=== PATIENT | female | born 1995 | race Two or more races ===

== ENCOUNTER 2019-08-13 21:02 | Inpatient (IN) | payer OTHER ==
[~2019-08-13] VITALS: Ht 160 cm; Wt 52.9 kg
[2019-08-13] MEDS ORDERED: ONDANSETRON HCL 4 MG/2 ML VIAL IV ONE (22:00)
[2019-08-13] MEDS ORDERED: MORPHINE SULFATE 4 MG/ML SYR/VIAL IV ONE (22:00)
[2019-08-13] MEDS ORDERED: SODIUM CHLORIDE 0.9% 1,000 ML IV ONE (22:00)
[2019-08-13 22:08] LABS: Basophils # (auto) 0 10 ^3/uL (0-0.2); Basophils % (auto) 0.1 % (0.0-2.0); Eosinophils # (auto) 0.1 10 ^3/uL (0-0.8); Eosinophils % (auto) 0.9 % (0.0-7.0); Hematocrit 38.6 % (36.0-46.0); Hemoglobin 13.1 g/dL (12.2-16.2); Lymphocytes # (auto) 2.1 10 ^3/uL (0.4-5.4); Lymphocytes % (auto) 25.6 % (10.0-50.0); Mean Corpuscular Hemoglobin 30.2 pg (28.0-32.0); Mean Corpuscular Hgb Conc. 33.8 g/dL (32.0-36.0); Mean Corpuscular Volume 89.4 fL (80.0-100.0); Monocytes # (auto) 0.7 10 ^3/uL (0-1.3); Monocytes % (auto) 8.8 % (0.0-12.0); Neutrophils # (auto) 5.3 10 ^3/uL (1.6-8.6); Neutrophils % (auto) 64.6 % (37.0-80.0); Platelet Count (auto) 248 10^3/uL (140-450); Red Blood Cells 4.32 10^6/uL (4.0-5.20); Red Cell Distribution Width 13.1 % (11.8-14.3); White Blood Cell 8.2 10^3/uL (4.4-10.8)
[2019-08-13 22:18] LABS: Urine Bacteria NONE SEEN /hpf (None Seen); Urine Blood Negative /uL (Negative); Urine Specific Gravity 1.009 (1.001-1.035); Urine WBC 1 /hpf (0 - 5)
[2019-08-13 22:26] LABS: Albumin 3.6 g/dL (3.4-5.0); BUN/Creatinine Ratio 15.2; Calcium 9.1 mg/dL (8.5-10.1); Potassium 3.8 mmol/L (3.5-5.1)
[2019-08-13 22:28] LABS: INR 1.02 (0.9-1.15); Partial Thromboplastin Time 25.4 sec (23.64-32.05)
[2019-08-13 22:29] LABS: Bilirubin, Total 0.4 mg/dL (0.2-1.0); Total Protein 7.8 g/dL (6.4-8.2)
[2019-08-14] MEDS ORDERED: SODIUM CHLORIDE 0.9% 1,000 ML IV ONE (02:45)
[2019-08-14 04:26] LABS: Hematocrit 36.5 % (36.0-46.0); Hemoglobin 12.4 g/dL (12.2-16.2)
[2019-08-14 09:22] LABS: Hematocrit 36.7 % (36.0-46.0); Hemoglobin 12.5 g/dL (12.2-16.2)
[2019-08-14] MEDS ORDERED: ROCURONIUM 10MG/ML 10ML VIAL IV ONE (11:05)
[2019-08-14] MEDS ORDERED: PHENYLEPHRINE HCL 10 MG/ML VL IV ONE (11:05)
[2019-08-14] MEDS ORDERED: ceFAZolin 1GM/50ML 50 ML IV ONE (11:13)
[2019-08-14] MEDS ORDERED: MIDAZOLAM HCL 1MG/1ML-2 ML VIAL ONE (11:13)
[2019-08-14] MEDS ORDERED: MEPERIDINE HCL (25 MG/ML) 1ML VIAL ONE (11:13)
[2019-08-14] MEDS ORDERED: fentaNYL CITRATE 100 MCG/2 ML VL ONE (11:13)
[2019-08-14] MEDS ORDERED: DexAMETHasone SOD PHOS 10MG/1ML VIAL INJ ONE (11:14)
[2019-08-14] MEDS ORDERED: PROPOFOL 10 MG/ML 20 ML IV ONE (11:14)
[2019-08-14] MEDS ORDERED: CLINDAMYCIN 600MG IV 50 ML IV ONE (11:15)
[2019-08-14] MEDS ORDERED: MIDAZOLAM HCL 1MG/1ML-2 ML VIAL IV PRN (12:00)
[2019-08-14] MEDS ORDERED: ONDANSETRON HCL 4 MG/2 ML VIAL IV PRN (12:00)
[2019-08-14] MEDS ORDERED: KETOROLAC TROMETH 15 mg/ml 1ML VL IV ONE (12:00)
[2019-08-14] MEDS ORDERED: MORPHINE SULFATE 4 MG/ML SYR/VIAL IV PRN ×2 (12:00→12:15)
[2019-08-14] MEDS ORDERED: LABETALOL HCL 5 MG/ML 4ML SYRINGE IV PRN (12:00)
[2019-08-14] MEDS ORDERED: ONDANSETRON HCL 4 MG/2 ML VIAL ONE (12:02)
[2019-08-14] MEDS ORDERED: GLYCOPYRROLATE 0.2 MG/ML 1ML VIAL ONE (12:05)
[2019-08-14] MEDS ORDERED: NEOSTIGMINE 1 MG/ML INJ (10mg/10ML VIAL) ONE (12:05)
[2019-08-14] MEDS ORDERED: RHO (D) IMMUNE GLOBULIN 300 MCG INJ IM PRN (12:15)
[2019-08-14] MEDS: HYDROmorphone HCL 2 MG/ML VL IV PRN ×3 (13:04→13:24)
[2019-08-14 14:17] VITALS: BP 111/63
[2019-08-14] MEDS: LACTATED RINGER'S 1,000 ML IV SCH ×2 (14:56→18:41)
[2019-08-14 17:00] VITALS: BP 111/66
--- NOTE | 2019-08-14 19:30 | NUR ---
Opening Shift Note Assumed care of patient. Patient is awake and alert. No S/S of distress/SOB. Instructed on POC and to call for assist PRN, will continue to monitor for changes Q1hr and PRN. Bed locked in lowest position and bed rails up x2. Call light within reach.
[2019-08-14] MEDS ORDERED: CLINDAMYCIN 600MG IV 50 ML IV SCH (20:00)
[2019-08-14 20:15] LABS: Basophils # (auto) 0 10 ^3/uL (0-0.2); Eosinophils # (auto) 0 10 ^3/uL (0-0.8); Hematocrit 37.5 % (36.0-46.0); Hemoglobin 12.7 g/dL (12.2-16.2); Lymphocytes # (auto) 0.5 10 ^3/uL (0.4-5.4); Lymphocytes % (auto) 4.4 % (10.0-50.0); Mean Corpuscular Hemoglobin 30.3 pg (28.0-32.0); Mean Corpuscular Volume 89.2 fL (80.0-100.0); Monocytes # (auto) 0.1 10 ^3/uL (0-1.3); Monocytes % (auto) 1.2 % (0.0-12.0); Neutrophils # (auto) 10.3 10 ^3/uL (1.6-8.6); Neutrophils % (auto) 94.4 % (37.0-80.0); Platelet Count (auto) 240 10^3/uL (140-450); Red Cell Distribution Width 13.1 % (11.8-14.3); White Blood Cell 10.9 10^3/uL (4.4-10.8)
[2019-08-14] MEDS: ONDANSETRON HCL 4 MG/2 ML VIAL IV PRN (21:40)
[2019-08-14 21:54] VITALS: BP 106/63
[2019-08-15] MEDS: LACTATED RINGER'S 1,000 ML IV SCH ×4 (01:30→21:45)
[2019-08-15] MEDS: CLINDAMYCIN 600MG IV 50 ML IV SCH ×3 (04:06→15:21)
[2019-08-15 05:00] VITALS: BP 105/58
--- NOTE | 2019-08-15 08:00 | NUR ---
Opening Shift Note Assumed care of patient, awake, alert and oriented X4. No S/S of distress/SOB, complains of low back pain and bilateral shoulder pain, 6/10, informed will medicate with prescribed pain medication, verbalized understanding. Right wrist 20 gauge, patent and infusing Lactated Ringers @ 150 ml/hr. Suprapubic surgical incision with derma elizondo and steri strips in place, clean dry and intact, abdominal binder in place. Urethral Aleman catheter draining clear, yellow urine to gravity. Instructed on POC and to call for assist PRN, verbalized understanding. Bed locked, in lowest position, call light within reach, will continue to monitor for changes Q1hr and PRN.
[2019-08-15 08:21] LABS: Basophils # (auto) 0 10 ^3/uL (0-0.2); Basophils % (auto) 0.1 % (0.0-2.0); Eosinophils # (auto) 0 10 ^3/uL (0-0.8); Eosinophils % (auto) 0.1 % (0.0-7.0); Hematocrit 37.4 % (36.0-46.0); Hemoglobin 12.4 g/dL (12.2-16.2); Lymphocytes # (auto) 1.8 10 ^3/uL (0.4-5.4); Lymphocytes % (auto) 14.1 % (10.0-50.0); Mean Corpuscular Hemoglobin 29.5 pg (28.0-32.0); Mean Corpuscular Hgb Conc. 33.1 g/dL (32.0-36.0); Monocytes # (auto) 1.3 10 ^3/uL (0-1.3); Monocytes % (auto) 9.9 % (0.0-12.0); Neutrophils # (auto) 9.9 10 ^3/uL (1.6-8.6); Neutrophils % (auto) 75.8 % (37.0-80.0); Platelet Count (auto) 261 10^3/uL (140-450); Red Cell Distribution Width 13.3 % (11.8-14.3)
[2019-08-15] MEDS ORDERED: BISACODYL 10 MG RECT SUPP PR PRN (08:30)
[2019-08-15] MEDS ORDERED: DOCUSATE SOD 100 MG CAP PO PRN (08:30)
--- NOTE | 2019-08-15 08:30 | NUR ---
ROUNDS Dr Eagle at bedside for rounds, new orders received and followed through. Patient updated on plan of care, verbalized understanding.
[2019-08-15 09:07] VITALS: BP 109/66
[2019-08-15] MEDS: ONDANSETRON HCL 4 MG/2 ML VIAL IV PRN (09:48)
[2019-08-15] MEDS ORDERED: SIMETHICONE 80 MG CHEWABLE TABLET PO ONE (09:57)
[2019-08-15] MEDS: SIMETHICONE 80 MG CHEWABLE TABLET PO SCH ×4 (10:24→21:25)
[2019-08-15] MEDS: DOCUSATE CALCIUM 240 MG CAP PO SCH (10:25)
[2019-08-15] MEDS: HYDROcodone-ACET 10/325MG TAB PO PRN ×2 (11:02→21:27)
[2019-08-15] MEDS ORDERED: SIMETHICONE 80 MG CHEWABLE TABLET PO SCH (12:00)
[2019-08-15 12:36] VITALS: BP 109/64
[2019-08-15 16:54] VITALS: BP 115/67
--- NOTE | 2019-08-15 18:02 | NUR ---
Call placed to Dr Eagle, confirmed if patient will be discharged tonight. Per DR Eagle, patient will be discharged tomorrow morning. Patient updated on plan of care, verbalized understanding.
--- NOTE | 2019-08-15 19:26 | NUR ---
Care endorsed to VU Troncoso, night nurse.
--- NOTE | 2019-08-15 19:30 | NUR ---
Opening Shift Note Assumed care of patient, awake and alert. Very pleasant No S/S of distress/SOB. C/o pain 4/10 to abdomen and right shoulder as well. Incision to abdomen clean dry and intact, with steri strips in place. Wearing abdominal binder. Steady gait, ambulating around in her room and to bathroom. Instructed on POC and to call for assist PRN, will continue to monitor for changes Q1hr and PRN.
[2019-08-15 21:48] VITALS: BP 124/55
--- NOTE | 2019-08-15 22:00 | NUR ---
Patient can not get comfortable in the bed. Says she has pain not only in abdomen but her right shoulder area is very sore. Wanted to just sleep in the chair at bedside. Found her a reclining chair. Medicated with norco and gave her a heat pack for her shoulder and extra pillow to brace her stomach when coughing. No drainage at wound site, continues to wear abdominal binder.
[2019-08-16 05:00] VITALS: BP 104/53
[2019-08-16] MEDS: SIMETHICONE 80 MG CHEWABLE TABLET PO SCH (06:00)
[2019-08-16] MEDS: LACTATED RINGER'S 1,000 ML IV SCH (06:59)
[2019-08-16] MEDS: HYDROcodone-ACET 10/325MG TAB PO PRN ×2 (07:00→13:00)
--- NOTE | 2019-08-16 08:00 | NUR ---
Opening Shift Note Assumed care of patient, awake, alert and oriented X4. No S/S of distress/SOB, right shoulder pain, /, verbalized this is a tolerable level. Right wrist 20 gauge, patent and infusing Lactated Ringers @ 150 ml/hr. Suprapubic surgical incision with derma elizondo and steri strips in place, clean dry and intact, abdominal binder in place. Instructed on POC and to call for assist PRN, verbalized understanding. Bed locked, in lowest position, call light within reach, will continue to monitor for changes Q1hr and PRN.
--- NOTE | 2019-08-16 08:20 | NUR ---
ROUNDS Dr Eagle at beside for rounds, new orders received and followed through. Patient updated on plan of care, verbalized understanding.
[2019-08-16 08:52] VITALS: BP 99/60
[2019-08-16] MEDS: DOCUSATE CALCIUM 240 MG CAP PO SCH (10:16)
[2019-08-16 11:39] VITALS: BP 99/60
[2019-08-16 12:39] VITALS: BP 102/58
== END 2019-08-16 13:33 | disposition home or self-care (01) | DRG 817 ==
LOC: ER 21:02 → OR 1 08-14 11:49 → CENTRAL 08-14 13:40
PROVIDERS: ADMIT Obstetrics & Gynecology; ATTEND Obstetrics & Gynecology
PROC: 0UB60ZZ Excision of Left Fallopian Tube, Open Approach (ICD-10-PCS; 2019-08-14)
PROC: 0DCW0ZZ Extirpation of Matter from Peritoneum, Open Approach (ICD-10-PCS; 2019-08-14)
PROC: 10T20ZZ Resection of Products of Conception, Ectopic, Open Approach (ICD-10-PCS; principal; 2019-08-14 11:25)
DX: O00.102 Left tubal pregnancy without intrauterine pregnancy (principal); K66.1 Hemoperitoneum; O08.89 Other complications following an ectopic and molar pregnancy
CPT/HCPCS: 36415; 76801; 76817; 80053; 81001; 84702; 85014; 85018; 85025; 85610; 85730; 86850; 86900; 86901; G0378; J0690; J1100; J2250; J2405; J2704; J3490